=== PATIENT | female | born 1955 | race Caucasian/White ===

== ENCOUNTER 2021-09-24 15:02 | Emergency (ER) | payer MEDICARE, OTHER ==
[~2021-09-24] VITALS: Ht 172.7 cm; Wt 87.5 kg
[~2021-09-24 15:02] MED LIST: Z.0.ASPIRIN CHEW81 M; Z.0.CELEXA40 MG; Z.0.TOPAMAX25 MG; Z.0.ZOCOR20 MG
[2021-09-24] MEDS ORDERED: TRAMADOL HCL 50 MG TAB PO ONE (16:00)
[2021-09-24] MEDS ORDERED: TRAMADOL HCL 50 MG TAB ONE (16:08)
[2021-09-24] MEDS ORDERED: ULTRAM 50MG50 MG PO ×3 (19:38→21:45)
[2021-09-24 20:08] VITALS: BP 124/62
[2021-09-25] MEDS ORDERED: ULTRAM 50MG50 MG PO (01:39)
== END 2021-09-24 20:09 | disposition home or self-care (01) ==
LOC: FSED 15:30
DX: S52.591A Other fractures of lower end of right radius, initial encounter for closed fracture (principal); W01.0XXA Fall on same level from slipping, tripping and stumbling without subsequent striking against object, initial encounter; Y93.01 Activity, walking, marching and hiking; Y92.89 Other specified places as the place of occurrence of the external cause; R91.8 Other nonspecific abnormal finding of lung field
CPT/HCPCS: 99283